=== PATIENT | male | born 1990 | race Caucasian/White ===

== ENCOUNTER 2016-10-28 07:54 | Emergency (ER) | payer MEDICAID ==
[2016-10-28 08:08] VITALS: TEMP 97.8; BMI 25.6
[2016-10-28] MEDS ORDERED: AZITHROMYCIN 250 MG TAB PO ONE (08:33)
[2016-10-28] MEDS ORDERED: ONDANSETRON HCL 4 MG ODT TAB PO ONE (08:34)
--- NOTE | 2016-10-28 08:35 | EDPRACDOC ---
- General Information Chief Complaint: Wound Stated Complaint: MALE AREA PAIN/ FINGER PAIN Time Seen by Provider: 10/28/16 08:29 Information Source: Patient Home Medications: Home Medications No Home Medications 10/28/16 Allergies/Adverse Reactions: Allergies Allergy/AdvReac Type Severity Reaction Status Date / Time bismuth subsalicylate Allergy Hives* Verified 10/28/16 08:02 [From Pepto-Bismol] - History of Present Illness Onset: 2 days HPI: PAINFUL LESION LEFT 4TH FINGER, RIGHT THIRD FINGER, 3 DAYS AGO, GOT PUS OUT OF BOTH WITH SQUEEZING. ALSO WANTS CHECKED FOR STD'S. DENIES VAGINAL DISCHARGE. ONLY PARTNER IS PT'S GIRLFRIEND, SHE IS GETTING TESTED TODAY WELL. ED Past Medical History - Patient Medical History Psychological History: Denies: Depression - Social Medical History Smoking Status: Light tobacco smoker (less than 5/day) EDM Review of Systems - Review of Systems ROS Negative Except as Marked: Yes All systems reviewed and were negative except as marked Constitutional: No Symptoms Reported. negative: Fever Eyes: No Symptoms Reported Respiratory: No Symptoms Reported Cardiovascular: No Symptoms Reported Gastrointestinal: No Symptoms Reported. negative: Pain Genitourinary: No Symptoms Reported Neurological: No Symptoms Reported - Physical Exam Constitutional: Alert (Awake), No apparent distress Oriented to: Time, Person, Place Last recorded Vital Signs: Last Vital Signs Temp 97.8 F 10/28/16 08:02 Pulse 106 10/28/16 08:02 Resp 18 10/28/16 08:02 BP 146/72 10/28/16 08:02 Pulse Ox 98 10/28/16 08:02 Oxygen Pulse Oxygen Saturation 98 O2 Device Room Air Oxygen Flow Rate Fraction of Inspired Oxygen ( FIO2) - HEENT Head: Normal ( normocephalic) Eye Exam: Normal (PERRL, EOMI, Sclera white) Oropharynx: Normal (Pharynx:Moist without exudate,Gums-no swelling) Nose: No Symptoms Reported (septum midline) Neck: Normal (FROM, trachea at midline) - Respiratory/Cardiovascular Respiratory: Normal - CTA (BBS clear to auscultation without adventitious sounds ) Cardiovascular: Normal (RRR without murmur, gallop or rub) - GI Auscultation: Normal (NABS) Palpation: Normal (Soft,No rebound or guarding, non distended) Tenderness: Non tender Mcmahan's Sign: Negative - Musculoskeletal Back: Normal (Non-Tender) Extremities: Normal (Normal tone, Pulses 2+ No cyanosis or edema, FROM) - Integumentary Skin: Normal, Warm, Dry, Other (LEFT 4TH DIGIT EVIDENCE OF OLD [place]. NO FLUCTUANCE OR DRAINAGE. FAINT ERYTHEMA RIHGT 3RD MID PHALANX DENUDED ERYTHEMETOUS BASE, NO FLUCTUANCE) Lymphatics: Normal (no adenopathy) - Neurologic Memory Impaired: Normal Motor Function: Normal (Normal tone, Pulses 2+ No cyanosis or edema, FROM) Cranial Nerve: Normal (CN II-X11 intact sensation, strength 5/5) Cerebellar: Normal Mood Description: Normal Perception: Normal Decision Time to Discharge: 09:24 - Departure Yes I personally saw and evaluated the patient. Disposition: Home Condition: Stable Final Diagnosis: Sexually transmitted disease exposure Instructions: Sexually Transmitted Diseases (ED), Safe Sex (ED) Education/Counseling Given To: Patient Education/Counseling Given Regarding: Diagnosis Referrals: None,No Provider [Primary Care Provider] - One Week Prescriptions: No Action No Home Medications 0 NA DIR #0 info Additional Instructions: NO SEX FOR 1 WEEK FOLLOW UP AT HEALTH DEPARTMENT FOR HIV/SYPHILIS CHECK.
[2016-10-28] MEDS ORDERED: LIDOCAINE 1% 2 ML (METHYLPARABEN FREE) ONE (08:41)
[2016-10-28] MEDS ORDERED: CEFTRIAXONE 250 MG VIAL IM ONE (08:45)
[2016-10-28 09:44] VITALS: BP 136/75; PULSE 74
== END 2016-10-28 09:42 | disposition home or self-care (01) ==
LOC: ED 07:54
DX: Z20.2 Contact with and (suspected) exposure to infections with a predominantly sexual mode of transmission (principal)
CPT/HCPCS: 96372; 99283; J0696; J2001; J3490